=== PATIENT | female | born 1990 | race Caucasian/White ===

== ENCOUNTER 2021-01-28 18:56 | Observation (INO) | payer OTHER ==
[~2021-01-28] VITALS: Ht 157.5 cm; Wt 85.0 kg
--- NOTE | 2021-01-28 19:15 | NUR ---
PT ARRIVED TO ROOM VIA W/C WITH S.O. TRIAGED AT BEDSIDE. PT TRAVELING FROM [facility] TO [facility] FOR A FAMILY EVENT.
--- NOTE | 2021-01-28 19:34 | NUR ---
PATIENT AMBULATES TO THE BATHROOM WITH SPOUSE, STEADY ASSISTED GAIT.
[2021-01-28] MEDS ORDERED: ESTRADIOL (19:36)
[2021-01-28] MEDS ORDERED: [UNRECOGNIZED DRUG - OTHER] (19:36)
[2021-01-28] MEDS ORDERED: NORETHINDRONE (19:36)
[2021-01-28] MEDS ORDERED: BUSPAR5 MG PO (19:36)
[2021-01-28 19:47] LABS: HEMATOCRIT 24.3 % (37.0-47.0); HEMOGLOBIN 7.4 g/dl (12.0-16.0); IMMATURE GRANULOCYTES 0.6 % (0.0-5.0); MEAN CORPUSCULAR HGB 27.1 pG CALC (26.0-32.0); MEAN CORPUSCULAR HGB CONC 30.5 g/dL CAL (32.0-36.0); NEUT# 8.15 thou/uL (2.00-7.15); RED BLOOD COUNT 2.73 mill/uL (4.20-5.60)
[2021-01-28 19:55] LABS: ALBUMIN 3.9 g/dL (3.2-5.0); ALKALINE PHOSPHATASE 65 u/l (38-126); BILIRUBIN, TOTAL 0.5 mg/dL (0.0-1.4); BUN 13 mg/dL (7-17); BUN/CREATININE RATIO 23 (12-20 (CALC)); CARBON DIOXIDE 21 mmol/l (22-30); CHLORIDE 105 mmol/l (95-108); CREATININE 0.6 mg/dL (0.5-1.0); GFR > 60 ML/MIN (>=60 (CALC)); GFR FOR AFR.AMER. > 60 ML/MIN (>=60 (CALC)); SGOT/AST 54 u/l (14-36); SODIUM 135 mmol/l (137-146)
[2021-01-28 20:02] LABS: ANION GAP 14 (6-22 (CALC)); POTASSIUM 4.9 mmol/l (3.5-5.1)
--- NOTE | 2021-01-28 21:49 | NUR ---
REPORT GIVEN TO ADELIA VEGA. AWAITING COVID RESULT BEFORE TRANSFERRING TO FLOOR.
[2021-01-28 22:06] VITALS: BP 117/63
--- NOTE | 2021-01-28 22:06 | NUR ---
PATIENT ARRIVES VIA STRETCHER, ACOMPANIED BY ADELIA RENDON. NO ACUTE DISTRESS SHOWN. IS AWAKE, ORIENTED X4. ON RA. WALKS TO RESTROOM, DOES BECOME SOB WITH EXERTION, SUCH WALKING TO RESTROOM. VS TAKEN PRIOR TO BLOOD TRANSFUSION. CALL LIGHT WITHIN REACH, POC DISCUSSED. 2229: VERIFIED BLOOD WITH STELLA DELVALLE. NURSE ASSESSMENT PERFORMED. ADMISSION COMPLETED, MEDICATIONS RECONCILED. PATIENT REPORTS SHE WAS PASSING BY FROM [facility] TO GET TO HER PRENTS THAT LIVE IN [place]. SHE HAD LARGE AMOUNTS OF BLOOD/CLOTS AND HAD ALMOST [facility]. PATIENT REPORTS SHE LAST RECEIVED BLOOD ON Tuesday01/23/21, NO REACTIONS. REPORTS CRAMPING OF PELVIC AREA.
[2021-01-28 22:35] VITALS: BP 116/48
--- NOTE | 2021-01-28 22:35 | NUR ---
BLOOD TRANSFUSION HAS BEGUN. NO ACUTE DISTRESS SHOWN. PATIENT REPORTS ANXIETY BECAUSE SHE HAS NEVER HAD A BLOOD TRANSFUSION WITHOUT A RELATIVE OR BOYFRIEND, PT WAS REASSURED. WS GIVEN TYLENOL PRIOR, BEGINNING TEMP WAS 99.2 DEGREES F. WILL CONTINUE TO MONITOR.
[2021-01-28 22:50] VITALS: BP 119/64
--- NOTE | 2021-01-28 22:50 | NUR ---
15 MINUTES OF OBSERVATION FOR BEGINNING OF BLOOD TRANSFUSION STABLE. NO ACUTE DISTRESS SHOWN, NO TRANSFUSION REACTION NOTED. NO COMPLAINTS. BP WNL, HR 100 BPM.
--- NOTE | 2021-01-28 23:15 | NUR ---
PATIENT LINDA IN [employer] TV, IS ON HER PHONE. NO ACUTE DISTRESS SHOWN. OFFERED A SNACK AND ANTONIA FRANSICO, ACCEPTS IT. CALL LIGHT WITHIN REACH.
[2021-01-28 23:38] VITALS: BP 117/63
[2021-01-29] VITALS (8 sets, daily range): BP systolic 99–115; BP diastolic 59–75
--- NOTE | 2021-01-29 01:17 | NUR ---
15 MINUTE OBSERVATION FOR BLOOD TRANSFUSION REACTION STABLE. NO REACTIONS NOTED, NO COMPLAINTS. WILL CONTINUE TO MONITOR.
--- NOTE | 2021-01-29 02:03 | NUR ---
PATIENT IS AWAKE, NO ACUTE DISTRESS SHWON. POST 1 HR BLOOD TRANSFUSION VS TAKEN. TEMP CONTINUES TO BE IN 99 DEGREE RANGE.
--- NOTE | 2021-01-29 03:50 | NUR ---
PATIENT ABLE TO WALK TO RESTROOM, REPORTS SLIGHT SOB. REPORTS SCANT VAGINAL BLEEDING. WASHED HER FACE, CHANGED HER CLOTHES. NOW LAYS IN BED INSEMI-LOMAS'S. CALL LIGHT WITHIN REACH.
[2021-01-29 06:02] LABS: HEMATOCRIT 26.2 % (37.0-47.0); HEMOGLOBIN 8.4 g/dl (12.0-16.0); MEAN CELL VOLUME 85.9 fL CALC (80.0-100.0); MEAN CORPUSCULAR HGB 27.5 pG CALC (26.0-32.0); MEAN CORPUSCULAR HGB CONC 32.1 g/dL CAL (32.0-36.0); NEUT# 4.35 thou/uL (2.00-7.15); RED BLOOD COUNT 3.05 mill/uL (4.20-5.60); RED CELL DISTRI WIDTH 18.2 % (11.5-15.5)
[2021-01-29 06:21] LABS: ANION GAP 10 (6-22 (CALC)); BUN 14 mg/dL (7-17); BUN/CREATININE RATIO 24 (12-20 (CALC)); CARBON DIOXIDE 22 mmol/l (22-30); CHLORIDE 105 mmol/l (95-108); CREATININE 0.6 mg/dL (0.5-1.0); GFR > 60 ML/MIN (>=60 (CALC)); GFR FOR AFR.AMER. > 60 ML/MIN (>=60 (CALC)); SODIUM 134 mmol/l (137-146)
--- NOTE | 2021-01-29 07:00 | NUR ---
REPORT RECEIVED FROM ANGELITORN
--- NOTE | 2021-01-29 08:00 | NUR ---
PT RESTING IN SEMI FOWLERS POSITION,A&O X3;VS OBTAINED AND ASSESSMENT COMPLETED;PT DENIES ANY CURRENT PAIN OR DISCOMFORTS,PAIN SCALE AND REPORTING EDUCATED;RESPIRATIONS EVEN AND UNLABORED ON RA,CLEAR LUNG SOUNDS;ABDOMEN SOFT ON PALPATION AND ACTIVE IN ALL 4 QUADRANTS;STRONG PEDAL PULSES;SKIN INTACT;#20G TO LAC FLUSHED AND PATENT,SITE APPEARS HEALTHY;FRESH WATER PROVIDED;PT DENIES ANY ADDITIONAL NEEDS AND IS ENCOURAGED TO CALL FOR ASSISTANCE IF NEEDED;FALL PRECAUTIONS IN PLACE WITH BED IN THE LOWEST POSITION AND CALL LIGHT IN REACH;WILL CONTINUE TO MONITOR
--- NOTE | 2021-01-29 08:26 | NUR ---
AT BEDSIDE DISCUSSING POC.
--- NOTE | 2021-01-29 10:13 | NUR ---
ALL DISCHARGE INSTRUCTIONS PROVIDED AT THIS TIME;PT INSTRUCTED TO F/U WITH PCP AND GYNECOLOGY. IF SYMPTOMATIC RETURN TO ER FOR EVALUATION;PT VERBALIZES UNDERSTANDING AND DENIES ANY ADDITIONAL QUESTIONS OR NEEDS;IV SITE REMOVED WITH CATHETER INTACT;WHEELCHAIR TO BE PROVIDED FOR D/C HOME;FAMILY TO TRANSPORT PT HOME;WILL CONTINUE TO MONITOR
--- NOTE | 2021-01-29 10:30 | NUR ---
Discharge instructions given. Patient verbalizes understanding of same. Discharged in stable condition via Wheelchair to Home with family. All belongings sent with pt. PT TRANSPORTED TO [facility] IN STABLE CONDITION VIA WHEELCHAIR FOR D/C HOME;SPOUSE TO TRANSPORT PT HOME.ALL BELONGINGS LEFT WITH PT.
== END 2021-01-29 10:30 | disposition home or self-care (01) | DRG 812 ==
LOC: ED 18:56 → ED-I 21:00 → ED 21:09 → ICU 21:10
PROVIDERS: Family Medicine; ADMIT Internal Medicine; ATTEND Internal Medicine
PROC: 30233N1 Transfusion of Nonautologous Red Blood Cells into Peripheral Vein, Percutaneous Approach (ICD-10-PCS; principal; 2021-01-28)
PROC: 30233N1 Transfusion of Nonautologous Red Blood Cells into Peripheral Vein, Percutaneous Approach (ICD-10-PCS; 2021-01-29)
DX: D62 Acute posthemorrhagic anemia (principal); N93.9 Abnormal uterine and vaginal bleeding, unspecified; D25.9 Leiomyoma of uterus, unspecified; E78.00 Pure hypercholesterolemia, unspecified; Z20.822 Contact with and (suspected) exposure to COVID-19
CPT/HCPCS: P9016